=== PATIENT | female | born 1990 | race Hispanic/Latino ===

== ENCOUNTER 2023-10-21 23:06 | Emergency (ER) | payer BC, OTHER ==
--- OUTSIDE RECORDS SUMMARY | 2023-10-21 23:10 | XMS REPORT | Continuity of Care Document ---
Author Name Unknown Address [address] [facility]. [address] th[address] Address 1200 [facility] 1 [address] [place] [address] Care Team Providers Care Composition Worker Name Role Phone ABENA FIELDS Primary Care Physician YAN Mcconnell Attending Clinician ROMULO Fuentes Attending Clinician ISADORA Aranda Attending Clinician Unavailable ABENA FIELDS Attending Clinician Unavaila ble ABENA FIELDS Attending Clinician Unavaila ble [facility] Attending Clinician Unavailab le ABENA FIELDS Admitting Clinician Unavaila kalina Payers Payer Name Policy Type Policy Number Effective Date Expirati on Date Source [facility] [id number] 1 00:00:00 [facility] MEDICAID [id number] 2018 00:00:00 Allergies, Adverse Reactions, Alerts Allergy Name Allergy Type Status Severity Reaction(s) Onset Date Inactive Date Treating Clinician Comments Source [facility] Drug Class Active Hives 09-28 00:00: 00 [facility] Encounters Start Date/Time End Date/Time Encounter Type Admission Type Attending Clinicians Care Facility Care Department Encounter ID Source 2019-12-28 13:00:00 2019-12-28 13:00:00 Outpatient ROMULO BURGESS [facility] [id number] [facility] 2019-12-28 11:15:00 2019-12-28 11:15:00 Outpatient ISADORA JOHNSON [facility] [id number] [facility] 2019-09-21 15:15:00 2019-09-21 15:15:00 Outpatient ABENA HERRERA [facility] [id number] [facility] 2019-09-07 15:00:00 2019-09-07 15:00:00 Outpatient ABENA HERRERA [facility] [id number] [facility] 2019-06-13 11:56:18 2019-06-13 23:59:00 Outpatient ABENA HERRERA [facility] [id number] [facility] 2019-02-26 06:33:27 2019-02-26 08:31:00 Emergency X [facility] ERT [id number] [facility] Results Test Description Test Time Test Comments Results Result Co mments Source TSH, THIRD [id number] 06:48:12* Test Item Value Reference Range Interpretation Comme nts TSH, THIRD GENERATION (test code = 2821) 1.360 UIU/ML 0.400-4.100 [id number] 05:49:12* Test Item Value Reference Range Interpretation Comme nts RPR RESULT (test code = 3501) NON-REACTIVE NON-REACTIVE RPR TITER (test code = 3500) NOT INDIC. TITER NOT INDIC. UNLESS OTHERWISE INDICATED, ALL TESTING [facility] [address] [place] [address] MEDICAL AIDE: WESLEY GOODSON M.D. CLIA NUMBER [id number] [facility] [place]. [id number] COMPREHENSIVE METABOLIC [id number] 05:11:12* Test Item Value Reference Range Interpretation Comme nts GLUCOSE (test code = 2217) 105 MG/DL 70-99 H BUN (test code = 2208) 12 MG/DL 6-20 CREATININE (test code = 2214) 0.81 MG/DL 0.60-1.30 eGFR (2020 CKD-EPI) (test code = 31926) 99 ML/MIN/1.73 >60 CALC BUN/CREAT (test code = 2235) 15 RATIO 6-28 SODIUM (test code = 2231) 141 MEQ/L 133-146 POTASSIUM (test code = 2228) 4.0 MEQ/L 3.5-5.4 CHLORIDE (test code = 2215) 103 MEQ/L 95-107 CARBON DIOXIDE (test code = 2206) 26 MEQ/L 19-31 CALCIUM (test code = 220) 9.7 MG/DL 8.5-10.5 PROTEIN, TOTAL (test code = 2229) 6.7 G/DL 6.1-8.3 ALBUMIN (test code = 2201) 4.3 G/DL 3.5-5.2 CALC GLOBULIN (test code = 2240) 2.4 G/DL 1.9-3.7 CALC A/G RATIO (test code = 2234) 1.8 RATIO 1.0-2.6 BILIRUBIN, TOTAL (test code = 220) <0.2 MG/DL See_Comment [Automated me ssage] The system which generated this result transmitted reference range: <=1.2. The reference range was not used to interpret this result as normal/abnormal. ALKALINE PHOSPHATASE (test code = 2203) 98 U/L 40-114 AST (test code = 2217) 17 U/L 9-40 ALT (test code = 221) 20 U/L 5-40 LIPID [id number] 05:11:12* Test Item Value Reference Range Interpretation Comme nts CHOLESTEROL (test code = 2210) 174 MG/DL <200 TRIGLYCERIDES (test code = 2232) 157 MG/DL <150 H HDL CHOLESTEROL (test code = 0) 41 MG/DL >39 CALC LDL CHOL (test code = 2236) 106 MG/DL <100 H NOTE: CALCULATED LDL IS BASED ON MICHELE-FAUSTIN METHOD WHICHINCLUDES ADJUSTABLE TRIGLYCERIDE:VLDL CHOLESTEROL RATIO.THIS FACTOR VARIES BY MEASURED TRIGLYCERIDE AND NON-HDLCHOLESTEROL CONCENTRATIONS WITH INCREASED CALCULATED LDL SEENIN HIGHER TRIGLYCERIDE OR LOWER NON-HDL SPECIMENS. FOR MOREINFORMATION, SEE CLIENT ANNOUNCEMENT AT [email or web address] RISK RATIO LDL/HDL (test code = 2238) 2.59 RATIO <3.22 HEPATITIS PANEL, [id number] 04:59:54* Test Item Value Reference Range Interpretation Comme nts HEPATITIS A IgM (test code = 05762) NON-REACTIVE NON-REACTIVE HEPATITIS B CORE IgM (test code = 4644) NON-REACTIVE NON-REACTIVE HEPATITIS B SURF AG (test code = 2739) NON-REACTIVE NON-REACTIVE HEPATITIS C ANTIBODY (test code = 4675) NON-REACTIVE NON-REACTIVE INTERPRETATION HEPATITIS A: (test code = 2552) (NOTE) Hepatitis A serology shows no evidence of acute hepatitis A. INTERPRETATION HEPATITIS B: (test code = 85104) (NOTE) Hepatitis B serology shows no evidence of acute hepatitis B andno indication of exposure to hepatitis B virus in the previous мария eight months. INTERPRETATION HEPATITIS C: (test code = 42024) (NOTE) Hepatitis C serology shows no evidence of exposure to hepatitisC virus at this time. It can take up to 12 months after exposure tothe hepatitis C virus for antibodies to become detectable in the blood in certain patients. HIV 1/2 4TH GEN, RFLX [id number] 04:59:54* Test Item Value Reference Range Interpretation Comme nts HIV 1/2 4TH GEN, RFLX CONF ( test code = 3514) NON-REACTIVE NON-REACTIVE HEMOGLOBIN [id number] 04:17:27* Test Item Value Reference Range Interpretation Comme nts HEMOGLOBIN A1c (test code = 95377) 5.9 % 4.2-5.6 H CBC W/AUTO DIFF WITH [id number] 02:16:51* Test Item Value Reference Range Interpretation Comme nts WBC (test code = 1001) 7.4 K/UL 3.5-11.0 RBC (test code = 1002) 5.19 M/UL 3.80-5.40 HEMOGLOBIN (test code = 1003) 11.0 G/DL 11.5-15.5 L HEMATOCRIT (test code = 1004) 37.2 % 34.0-45.0 MCV (test code = 1005) 71.7 fL 80.0-99.0 L MCH (test code = 1006) 21.2 PG 25.0-33.0 L MCHC (test code = 1007) 29.6 G/DL 31.0-36.0 L RDW (test code = 1038) 15.6 % 11.5-15.0 H NEUTROPHILS (test code = 1008) 72.3 % LYMPHOCYTES (test code = 1010) 19.8 % MONOCYTES (test code = 1011) 5.6 % EOSINOPHILS (test code = 1012) 1.5 % BASOPHILS (test code = 1013) 0.3 % IMMATURE GRANULOCYTES (test code = 1036) 0.5 % NUCLEATED RBCS (test code = 1065) 0.0 /100 WBC'S See_Comment [Automated messa ge] The system which generated this result transmitted reference range: 0.0. The reference range was not used to interpret this result as normal/abnormal. PLATELET COUNT (test code = 1015) 238 K/UL 130-400 ABSOLUTE NEUTROPHILS (test code = 1066) 5.32 K/UL 1.50-7.50 ABSOLUTE LYMPHOCYTES (test code = 1067) 1.46 K/UL 1.00-4.00 ABSOLUTE MONOCYTES (test code = 1068) 0.41 K/UL 0.20-1.00 ABSOLUTE EOSINOPHILS (test code = 1040) 0.11 K/UL 0.00-0.50 ABSOLUTE BASOPHILS (test code = 1069) 0.02 K/UL 0.00-0.20 ABS IMMATURE GRANULOCYTES (test code = 1020) 0.04 K/UL 0.00-0.10 ABS NUCLEATED RBCS (test code = 85787) 0.00 K/UL 0.00-0.11
--- NOTE | 2023-10-21 23:23 | EDPHYS ---
Physician Documentation [facility] Name: Daxa Warren Age: 33 yrs Sex: Female : 1990 Arrival Date: 10/21/2023 Time: 23:06 Bed Waiting Private MD: ED Physician Augusto Richard HPI: 10/20 23:21 This 33 yrs old Female presents to ER via Unassigned with complaints of Insect kb Bite, Pain. 23:22 Pt is a 33 year old female who presents for abscess of right lower quadrant that kb developed 3-4 days ago. Reports drainage and redness. Denies fever. PRODUCTION SAMPLER: 23:29 LMP N/A - control method, Not tl4 Historical: - Allergies: 23:25 PENICILLINS; tl4 - Home Meds: 23:25 None [Active]; tl4 - PMHx: 23:25 Asthma; PE; tl4 - PSHx: 23:25 section; tl4 - Immunization history:: Adult Immunizations unknown. - Infectious Disease History:: Denies. - Social history:: Smoking status: Patient denies any tobacco usage or history of. ROS: 23:20 Constitutional: As per HPI kb Exam: 23:20 Constitutional: This is a well developed, well nourished patient who is awake, alert, kb and in no acute distress. Head/Face: Normocephalic, atraumatic. ENT: Moist Mucous membranes Cardiovascular: Regular rate Respiratory: Respirations even and unlabored. No increased work of breathing. Talking in full sentences MS/ Extremity: Pulses equal, no cyanosis. Neurovascular intact. Full, normal range of motion. Neuro: Awake and alert, GCS 15, oriented to person, place, time, and situation. Moves all extremities. Normal gait. 23:20 Skin: abscess, that is small, of the right lower quadrant, with drainage, that is purulent, Vital Signs: 23:21 BP 136 / 70; Pulse 70; Resp 16; Temp 98.3(O); Pulse Ox 100% on R/A; Weight 97.25 kg; tl4 Height 5 ft. 2 in. ; Pain 2/10; 23:21 Body Mass Index 39.21 (97.25 kg, 157.48 cm) tl4 23:21 Pain Scale: Adult tl4 MDM: 23:16 Patient medically screened. kb 23:20 Data reviewed: vital signs, nurses notes. kb 23:21 Differential diagnosis: abscess, allergic reaction, cellulitis, insect bite. kb Counseling: I had a detailed discussion with the patient and/or guardian regarding the historical points, exam findings, and any diagnostic results supporting the discharge/admit diagnosis, the need for outpatient follow up, a family practitioner, to return to the emergency department if symptoms worsen or persist or if there are any questions or concerns that arise at home. 23:21 ED course: No induration or area of fluctuance appreciated. No drainable abscess. kb Patient educated on warm compresses and to take antibiotics as directed.. Administered Medications: 23:29 Drug: Trimethoprim-Sulfamethoxazole PO (160 mg-800 mg (DS) 1 tablet PO once Route: PO; tl4 23:29 Follow up: Response: No adverse reaction; Medication administered at discharge. tl4 Disposition Summary: 10/21/23 23:22 Discharge Ordered Notes: Location: Home kb Condition: Stable kb Diagnosis - Cutaneous abscess of abdominal wall kb Followup: kb - With: Emergency Department - When: As needed - Reason: Worsening of condition Followup: kb - With: Private Physician - When: 2 - 3 days - Reason: Recheck today's complaints, Continuance of care, Re-evaluation by your physician Discharge Instructions: - Discharge Summary Sheet kb - Skin Abscess, [id number] kb Forms: - Medication Reconciliation Form kb - Antibiotic Education kb - Prescription Opioid Use kb - Patient Portal Instructions kb - Leadership Thank You Letter kb Prescriptions: - Bactrim DS 800-160 mg Oral Tablet - take 1 tablet ORAL route every 12 hours for 10 days; 20 tablet; Refills: 0, kb Product Selection Permitted Addendum: 10/25/2023 21:58 Co-signature as Attending Physician, Augusto Richard MD I agree with the assessment and c blakely plan of care. Signatures: Kelli Smith, WEED THINNER-C WEED THINNER-Augusto Joseph MD MD cha Logdahl, Toni, RN RN tl4 Corrections: (The following items were deleted from the chart) 10/20 23:21 23:20 Skin: abscess, that is small, of the right lower quadrant, kb
[2023-10-21] MEDS ORDERED: SMZ./TMP. 800/160 MG TABLET ONE (23:24)
--- NOTE | 2023-10-21 23:29 | ER ---
Nurse's Notes [facility] Name: Daxa Warren Age: 33 yrs Sex: Female : 1990 Arrival Date: 10/21/2023 Time: 23:06 Bed Waiting Private MD: Diagnosis: Cutaneous abscess of abdominal wall Presentation: 10/20 23:21 Chief complaint: Patient states: Pt c/o red, raised bump with purulent drainage on left tl4 lower quadrant since Tuesday. No fever/chills. Coronavirus screen: At this time, the client does not indicate any symptoms associated with coronavirus-19. Ebola Screen: No symptoms or risks identified at this time. Initial Sepsis Screen: Does the patient meet any 2 criteria? No. Patient's initial sepsis screen is negative. Does the patient have a suspected source of infection? No. Patient's initial sepsis screen is negative. Risk Assessment: Do you want to hurt yourself or someone else? Patient reports no desire to harm self or others. Onset of symptoms was October 18, 2023. 23:21 Method Of Arrival: Ambulatory tl4 23:21 Acuity: SRINATH 4 tl4 Triage Assessment: 23:25 Bite description: bite sustained to abdomen by an unknown animal, animal information: tl4 vaccination(s) is not applicable. General: Appears in no apparent distress. Behavior is calm, cooperative. Pain: Complains of pain in abdomen. EENT: No signs and/or symptoms were reported regarding the EENT system. Neuro: Level of Consciousness is awake, alert, obeys commands, Oriented to person, place, time, situation, Moves all extremities. Full function Gait is steady, Speech is normal. Cardiovascular: Capillary refill < 3 seconds Patient's skin is warm and dry. Respiratory: Airway is patent Respiratory effort is even, unlabored, Respiratory pattern is regular, symmetrical. GI: No signs and/or symptoms were reported involving the gastrointestinal system. : No signs and/or symptoms were reported regarding the genitourinary system. Derm: Wound noted abdomen. Musculoskeletal: No signs and/or symptoms reported regarding the musculoskeletal system. DIRECTOR OF RESIDENTIAL SERVICES: 23:29 LMP N/A - control method, Not tl4 Historical: - Allergies: 23:25 PENICILLINS; tl4 - Home Meds: 23:25 None [Active]; tl4 - PMHx: 23:25 Asthma; PE; tl4 - PSHx: 23:25 section; tl4 - Immunization history:: Adult Immunizations unknown. - Infectious Disease History:: Denies. - Social history:: Smoking status: Patient denies any tobacco usage or history of. Screenin:27 [facility] ED Fall Risk Assessment (Adult) History of falling in the last 3 months, tl4 including since admission No falls in past 3 months (0 pts) Confusion or Disorientation No (0 pts) Intoxicated or Sedated No (0 pts) Impaired Gait No (0 pts) Mobility Assist Device Used No (0 pt) Altered Elimination No (0 pt) Score/Fall Risk Level 0 - 2 = Low Risk Oriented to surroundings, Maintained a safe environment, Educated pt \T\ family on fall prevention, incl call for assistance when getting out of bed, Assessed \T\ reinforced patient's understanding of fall precautions. Abuse screen: Denies threats or abuse. Denies injuries from another. Nutritional screening: No deficits noted. Tuberculosis screening: No symptoms or risk factors identified. Assessment: 23:27 Derm: Skin is intact, Skin is pink, warm \T\ dry. tl4 Vital Signs: 23:21 BP 136 / 70; Pulse 70; Resp 16; Temp 98.3(O); Pulse Ox 100% on R/A; Weight 97.25 kg; tl4 Height 5 ft. 2 in. ; Pain 2/10; 23:21 Body Mass Index 39.21 (97.25 kg, 157.48 cm) tl4 23:21 Pain Scale: Adult tl4 ED Course: 23:14 Patient arrived in ED. gm2 23:15 Kelli Smith FNP-C is PHCP. kb 23:15 Augusto Richard MD is Attending Physician. kb 23:25 Triage completed. tl4 23:27 Arm band placed on right wrist. tl4 23:28 Patient has correct armband on for positive identification. Provided Education on: ED tl4 process. 23:28 No provider procedures requiring assistance completed. Patient did not have IV access tl4 during this emergency room visit. Administered Medications: 23:29 Drug: Trimethoprim-Sulfamethoxazole PO (160 mg-800 mg (DS) 1 tablet PO once Route: PO; tl4 23:29 Follow up: Response: No adverse reaction; Medication administered at discharge. tl4 Medication: 23:27 VIS not applicable for this client. tl4 Outcome: 23:22 Discharge ordered by MD. fabian 23:28 Discharged to home ambulatory, with family, tl4 23:28 Condition: stable 23:28 Discharge instructions given to patient, Instructed on discharge instructions, follow up and referral plans. medication usage, Demonstrated understanding of instructions, follow-up care, medications, Prescriptions given X 1, 23:29 Patient left the ED. tl4 Signatures: Kelli Smith FNP-C FNP-Marjorie Aguilera 2 Yvan Phillip, RN RN tl4
[2023-10-22 00:16] VITALS: BP 136/70; TEMP 98.3; O2SAT 100
== END 2023-10-21 23:29 | disposition home or self-care (01) ==
LOC: ER 23:06
DX: L02.211 Cutaneous abscess of abdominal wall (principal); Z88.0 Allergy status to penicillin

== ENCOUNTER 2025-03-26 09:54 | Emergency (ER) | payer BC ==
--- OUTSIDE RECORDS SUMMARY | 2025-03-26 09:57 | XMS REPORT | Continuity of Care Document ---
Author Name Unknown Address [address] [place] [address] [facility] Address [address] [place] [address] Care Team Providers Care Slitter Cut Off Operator Name Role Phone PCP, PATIENT DOES NOT HAVE A Primary Care Physic micaela Unavailable LUCY GREGORY Attending Clinician Unavailable SONDRA DAVIS Attending Clinician Unavailable Doctor Unassigned, [place] Attending Clinician U navailable Lab, Ang - Db Attending Clinician Unavailable Lucy Acuña Attending Clinician ADUMROMULO Attending Clinician Unavailable ISADORA ALVAREZ Attending Clinician Unavailable ABENA FIELDS Attending Clinician Unavaila ABENA Avendaño Attending Clinician Unavaila MAITE Youngblood Attending Clinician Unavailab ABENA Chadwick Admitting Clinician Unavaila ble Payers Payer Name Policy Type Policy Number Effective Date Expirati on Date Source [id number] 2024 00:00:00 [facility] MEDICAID [id number] 2018 00:00:00 Problems Condition Name Condition Details Condition Category Status Onset Date Resolution Date Last Treatment Date Treating Clinician Comments Source Anxiety Anxiety Disease Active 10-24 00:00: 00 [facility] Hypotensio n, unspecifie d hypotensio n type Hypotensio n, unspecifie d hypotensio n type Disease Active 10-24 00:00: 00 [facility] History of depression History of depression Disease Active 2018-06 00:00: 00 [facility] History of OCD (obsessive compulsive disorder) History of OCD (obsessive compulsive disorder) Disease Active 2018-06 00:00: 00 [facility] Candidal intertrigo Candidal intertrigo Disease Active 2018-06 00:00: 00 [facility] Puerperal endometrit is, condition or complicati on Puerperal endometrit is, condition or complicati on Disease Active 2018-06 00:00: 00 Overview: Formattin g of this note is different from the original. 06/12/19 - A pelvic US revealed an enlarged uterus measuring approxima tely 10.8 x 4.8 x 6.7 cm. Endometri al echo complex is7.2 mm. Small amount of fluid is detected within the endometri al cavity. Normal ovaries. ?CONCLUSI ON: Enlarged uterus with retained secretion s within theendome trial cavity. Etiology of retained secretion s could be endometri tis. [facility] Anemia of mother in , antepartum Anemia of mother in , antepartum Disease Active 02-16 00:00: 00 Overview: Formattin g of this note might be different from the original. 02/16/19 - Hgb 8.5, hct 30.1, MCV 66.7. Ferrous sulfate started - Hgb 9.5/hct 33.6 [facility] Prior poor obstetrica l history, antepartum Prior poor obstetrica l history, antepartum Disease Active 10-27 00:00: 00 Overview: Formattin g of this note might be different from the original. History of prior 4th degree laceratio n. Patient desires primary section. [facility] Personal history of pulmonary embolism Personal history of pulmonary embolism Disease Active 10-27 00:00: 00 Overview: Formattin g of this note might be different from the original. PE diagnosed 2 months postpartu 10/28/18 - Antiphosp holipid workup negative. Protein S low. B2 glycoprot ein and FVL negative. Started on Lovenox 40mg daily. Referral to [facility] (Dr. Tolbert) [facility] Not immune to rubella Not immune to rubella Disease Active 10-02 00:00: 00 Overview: Formattin g of this note might be different from the original. Equiv. Give postpartu m.ICD10 Diagnosis Term Flush Tester Utility [facility] Obesity Obesity Disease Active 09-28 00:00: 00 Overview: Formattin g of this note might be different from the original. ICD10 Diagnosis Term Flush Tester Utility [facility] Asthma Asthma Disease Active 09-28 00:00: 00 Overview: Formattin g of this note might be different from the original. ICD10 Diagnosis Term Flush Tester Utility [facility] Allergies, Adverse Reactions, Alerts Allergy Name Allergy Type Status Severity Reaction(s) Onset Date Inactive Date Treating Clinician Comments Source PENICILL INS Drug Class Active Hives 09-28 00:00: 00 [facility] Penicill ins Propensi ty to adverse reaction s Active Hives 09-28 00:00: 00 [facility] Social History Social Habit Start Date Stop Date Quantity Comments [facility] intake 2023-10-25 00:00:00 2023-10-25 00:00:00 Current non-drinker of alcohol (finding) [facility] Alcohol intake 2023-10-25 00:00:00 2023-10-25 00:00:00 Current non-drinker of alcohol (finding) [facility] History of Social function 2023-10-25 00:00:00 2023-10-25 00:00:00 [facility] Tobacco use and exposure 2017-06-13 00:00:00 2017-06-13 00:00:00 Smokeless tobacco non-user [facility] Alcohol Comment 2017-06-13 00:00:00 2017-06-13 00:00:00 wine [facility] History of tobacco use 2012-06-27 00:00:00 Cigarette Smoker [facility] Sex assigned at 1990 00:00:00 1990 00:00:00 [facility] Smoking Status Start Date Stop Date Source Never smoked tobacco [facility] Medications Ordered Medication Name Filled Medication Name Start Date Stop Date Current Medication? Ordering Clinician Indication Dosage Frequency Signature (SIG) Comments Components Source tirzepatide 2.5 mg/0.5 mL subcutaneou s injection 10-25 00:00: 00 Yes [id number] 2.5mg inject 2.5 mg under the skin weekly. [facility] dextroamphe tamine/amph etamine (ADDERALL ORAL) 10-24 09:01: 35 10-24 00:00 :00 No Take by mouth. [facility] buPROPion XL 150 mg 24 hr tablet 10-24 00:00: 00 Yes [id number] 150mg Take 1 tablet by mouth in the morning. [facility] clotrimazol e-betametha sone cream 10-24 00:00: 00 Yes [id number] Apply to area(s) 2 (two) times daily. [facility] sulfamethox azole-trime thoprim (BACTRIM DS) 800-160 mg per tablet 3-27 00:00: 00 10-24 00:00 :00 No [id number] 1{tbl} Take 1 tablet by mouth 2 (two) times daily. [facility] pantoprazol e (PROTONIX) 20 mg EC tablet 3-13 00:00: 00 10-24 00:00 :00 No [id number] 20mg Take 1 tablet by mouth 2 (two) times daily. [facility] buPROPion XL 150 mg 24 hr tablet 3-11 00:00: 00 10-24 00:00 :00 No [facility] clonazePAM 0.5 mg tablet 2-14 00:00: 00 10-24 00:00 :00 No .5mg Take 1 tablet by mouth at bedtime. [facility] Immunizations Ordered Immunization Name Filled Immunization Name Date Status Comments Source TD, NOS 2023-10-29 00:00:00 Completed [facility] Rubella 2023-10-29 00:00:00 Completed [facility] Varicella (varivax)(chicken pox) 2023-10-29 00:00:00 Completed [facility] TDAP (ADACEL) VACCINE 2023-10-29 00:00:00 Completed [facility] Influenza Virus Vaccine Quad .5 mL IM 6+ MO (FLUZONE/FLULAVAL/F LUARIX) 2023-10-29 00:00:00 Completed [facility] Pneumococcal 20 Conjugate, PCV20 (Prevnar 20) 2023-10-29 00:00:00 Completed [facility] TD, NOS 2023-10-25 09:45:00 Completed [facility] Rubella 2023-10-25 09:45:00 Completed [facility] Varicella (varivax)(chicken pox) 2023-10-25 09:45:00 Completed [facility] TDAP (ADACEL) VACCINE 2023-10-25 09:45:00 Completed [facility] Influenza Virus Vaccine Quad .5 mL IM 6+ MO (FLUZONE/FLULAVAL/F LUARIX) 2023-10-25 09:45:00 Completed [facility] Pneumococcal 20 Conjugate, PCV20 (Prevnar 20) 2023-10-25 09:45:00 Completed [facility] TD, NOS 2023-10-25 09:00:00 Completed [facility] Rubella 2023-10-25 09:00:00 Completed [facility] Varicella (varivax)(chicken pox) 2023-10-25 09:00:00 Completed [facility] TDAP (ADACEL) VACCINE 2023-10-25 09:00:00 Completed [facility] Influenza Virus Vaccine Quad .5 mL IM 6+ MO (FLUZONE/FLULAVAL/F LUARIX) 2023-10-25 09:00:00 Completed [facility] Pneumococcal 20 Conjugate, PCV20 (Prevnar 20) 2023-10-25 09:00:00 Completed [facility] Vital Signs Vital Name Observation Time Observation Value Comments S ource Systolic blood pressure 2023-10-25 14:01:00 110 mm[Hg] [place] [facility] Diastolic blood pressure 2023-10-25 14:01:00 47 mm[Hg] [facility] Heart rate 2023-10-25 14:01:00 75 /min [facility] Body height 2023-10-25 14:01:00 157.5 cm [facility] Body weight 2023-10-25 14:01:00 98.385 kg [facility] BMI 2023-10-25 14:01:00 39.67 kg/m2 [facility] Oxygen saturation in Arterial blood by Pulse oximetry 2023-10-25 14:01:00 100 /min [facility] Procedures Procedure Date / Time Performed Performing Clinician Source COMP. METABOLIC PANEL (93049) 2023-10-25 14:49:00 Lucy Gregory [facility] CBC WITH DIFF 2023-10-25 14:49:00 Lucy Gregory [facility] PNEUMOCOCCAL 20 CONJUGATE (PREVNAR 20) VACCINE 2023-10-25 14:13:32 Lucy Gregory [facility] Encounters Start Date/Time End Date/Time Encounter Type Admission Type Attending Clinicians Care Facility Care Department Encounter ID Source 2024-04-27 13:30:00 2024-04-27 13:30:00 Outpatient [facility] [id number] [facility] 2023-12-09 13:20:00 2023-12-09 13:20:00 Outpatient [facility] [id number] [facility] 2023-10-29 00:00:00 2023-12-03 18:03:10 Patient Secure Msg Doctor Unassigned, [place] [facility] 1.114 [id number] [id number] [facility] 2023-10-25 09:45:00 2023-10-25 10:00:00 Land Inspector Visit Lab, Lucy Gant [facility] 1..114 [id number] [id number] [id number] [facility] 2023-10-25 09:00:00 2023-10-25 09:34:28 Outpatient R [facility] [id number] [facility] 2023-10-25 09:00:00 2023-10-25 09:34:28 Office Visit Lucy Gregory [facility] [id number] [facility] 2019-12-28 13:00:00 2019-12-28 13:00:00 Outpatient R [facility] [id number] [facility] 2019-12-28 11:15:00 2019-12-28 11:15:00 Outpatient [facility] [id number] [facility] 2019-09-21 15:15:00 2019-09-21 15:15:00 Outpatient R ABENA FIELDS [facility] [id number] [facility] 2019-09-07 15:00:00 2019-09-07 15:00:00 Outpatient R [facility]ELDS [facility] [id number] [facility] 2019-06-13 11:56:18 2019-06-13 23:59:00 Outpatient R ABENA [facility]ELDS [facility] [id number] [facility] 2019-02-26 06:33:27 2019-02-26 08:31:00 Emergency X [facility] ERT [id number] [facility] Results Test Description Test Time Test Comments Results Result Co mments Source [facility] [id number] 19:21:31* Test Item Value Reference Range Interpretation Comme nts WBC (test code = 6690-2) 5.40 4.30-11.10 RBC (test code = 789-8) 4.92 3.93-5.25 HGB (test code = 718-7) 10.2 g/dL 11.6-15.0 L HCT (test code = 4544-3) 35.8 % 35.7-45.2 MCV (test code = 787-2) 72.8 fL 80.6-95.5 L MCH (test code = 785-6) 20.7 pg 25.9-32.8 L MCHC (test code = 786-4) 28.5 g/dL 31.6-35.1 L RDW-SD (test code = 70741-0) 41.6 fL 39.0-49.9 RDW-CV (test code = 788-0) 16.2 % 12.0-15.5 H PLT (test code = 777-3) 245 166-358 MPV (test code = 32158-8) 13.2 fL 9.5-12.9 H IPF % (test code = 1185290605) 8.4 % 1.3-7.7 H Platelet count measured by fluorescence method. NRBC/100 WBC (test code = 6965008196) 0.0 0.0-10.0 NRBC x10^3 (test code = 8141711890) See_Comment [Automated Pansievea ge] The system which generated this result transmitted reference range: 10*3/?L. The reference range was not used to interpret this result as normal/abnormal. GRAN MAT (NEUT) % (test code = 770-8) 67.5 % IMM GRAN % (test code = 7655588655) 0.70 % LYMPH % (test code = 736-9) 22.6 % MONO % (test code = 5905-5) 5.7 % EOS % (test code = 713-8) 3.1 % BASO % (test code = 706-2) 0.4 % GRAN MAT x10^3(ANC) (test code = 7164442763) 3.64 10*3/uL 1.88-7.09 IMM GRAN x10^3 (test code = 3042191994) 0.04 10*3/uL 0.00-0.06 LYMPH x10^3 (test code = 731-0) 1.22 10*3/uL 1.32-3.29 L MONO x10^3 (test code = 742-7) 0.31 10*3/uL 0.33-0.92 L EOS x10^3 (test code = 711-2) 0.17 10*3/uL 0.03-0.39 BASO x10^3 (test code = 704-7) 0.01-0.07 Lab Interpretation (test code = 45230-4) Abnormal [facility], NAAT, [id number] 08:45:30* Test Item Value Reference Range Interpretation Comme nts GONORRHEA, NAAT (test code = 42813) NEGATIVE NEGATIVE IMPORTANT NO KEVIN: SEE ANNOUNCEMENT AT [email or web address] Note: Assay methodology is nucleic acid amplification by grain drier mediated amplification (TMA) utilizing the Aptima Combo 2 Assay. CHLAMYDIA, NAAT (test code = 94696) NEGATIVE NEGATIVE IMPORTANT NO KEVIN: SEE ANNOUNCEMENT AT [email or web address] BiosciencesKit Note: Assay methodology is nucleic acid amplification by grain drier mediated amplification (TMA) utilizing the Aptima Combo 2 Assay. TSH, THIRD [id number] 06:48:12* Test Item Value Reference Range Interpretation Comme nts TSH, THIRD GENERATION (test code = 2821) 1.360 UIU/ML 0.400-4.100 [id number] 05:49:12* Test Item Value Reference Range Interpretation Comme nts RPR RESULT (test code = 3501) NON-REACTIVE NON-REACTIVE RPR TITER (test code = 3500) NOT INDIC. TITER NOT INDIC. UNLESS OTHERWISE INDICATED, ALL TESTING PERFORMED [facility], [facility] [address] [place] [id number] OSTEOPATHIC MEDICINE TEACHER: WESLEY GOODSON M.D. CLIA NUMBER [id number] [place]. [id number] COMPREHENSIVE METABOLIC [id number] 05:11:12* Test Item Value Reference Range Interpretation Comme nts GLUCOSE (test code = 2217) 105 MG/DL 70-99 H BUN (test code = 2208) 12 MG/DL 6-20 CREATININE (test code = 2214) 0.81 MG/DL 0.60-1.30 eGFR (2020 CKD-EPI) (test code = ) 99 ML/MIN/1.73 >60 CALC BUN/CREAT (test code = 2234) 15 RATIO 6-28 SODIUM (test code = 2230) 141 MEQ/L 133-146 POTASSIUM (test code = 2227) 4.0 MEQ/L 3.5-5.4 CHLORIDE (test code = 2214) 103 MEQ/L 95-107 CARBON DIOXIDE (test code = 2205) 26 MEQ/L 19-31 CALCIUM (test code = 2208) 9.7 MG/DL 8.5-10.5 PROTEIN, TOTAL (test code = 2228) 6.7 G/DL 6.1-8.3 ALBUMIN (test code = 2200) 4.3 G/DL 3.5-5.2 CALC GLOBULIN (test code = 2239) 2.4 G/DL 1.9-3.7 CALC A/G RATIO (test code = 2233) 1.8 RATIO 1.0-2.6 BILIRUBIN, TOTAL (test code = 2206) <0.2 MG/DL See_Comment [Automated me ssage] The system which generated this result transmitted reference range: <=1.2. The reference range was not used to interpret this result as normal/abnormal. ALKALINE PHOSPHATASE (test code = 2203) 98 U/L 40-114 AST (test code = 2217) 17 U/L 9-40 ALT (test code = 2218) 20 U/L 5-40 LIPID [id number] 05:11:12* Test Item Value Reference Range Interpretation Comme nts CHOLESTEROL (test code = 2209) 174 MG/DL <200 TRIGLYCERIDES (test code = 223) 157 MG/DL <150 H HDL CHOLESTEROL (test code = 2219) 41 MG/DL >39 CALC LDL CHOL (test code = 7) 106 MG/DL <100 H NOTE: CALCULATED LDL IS BASED ON MICHELE-FAUSTIN METHOD WHICHINCLUDES ADJUSTABLE TRIGLYCERIDE:VLDL CHOLESTEROL RATIO.THIS FACTOR VARIES BY MEASURED TRIGLYCERIDE AND NON-HDLCHOLESTEROL CONCENTRATIONS WITH INCREASED CALCULATED LDL SEENIN HIGHER TRIGLYCERIDE OR LOWER NON-HDL SPECIMENS. FOR MOREINFORMATION, SEE CLIENT ANNOUNCEMENT AT [email or web address] [email or web address] RATIO LDL/HDL (test code = 2238) 2.59 RATIO <3.22 HEPATITIS PANEL, [id number] 04:59:54* Test Item Value Reference Range Interpretation Comme [facility] HEPATITIS A IgM (test code = 52402) NON-REACTIVE NON-REACTIVE HEPATITIS B CORE IgM (test code = 4644) NON-REACTIVE NON-REACTIVE HEPATITIS B SURF AG (test code = 2739) NON-REACTIVE NON-REACTIVE HEPATITIS C ANTIBODY (test code = 4675) NON-REACTIVE NON-REACTIVE INTERPRETATION HEPATITIS A: (test code = 2552) (NOTE) Hepatitis A serology shows no evidence of acute hepatitis A. INTERPRETATION HEPATITIS B: (test code = 54019) (NOTE) Hepatitis B serology shows no evidence of acute hepatitis B andno indication of exposure to hepatitis B virus in the previous мария eight months. INTERPRETATION HEPATITIS C: (test code = 11983) (NOTE) Hepatitis C serology shows no evidence of exposure to hepatitisC virus at this time. It can take up to 12 months after exposure tothe hepatitis C virus for antibodies to become detectable in the blood in certain patients. HIV 1/2 4TH GEN, RFLX [id number] 04:59:54* Test Item Value Reference Range Interpretation Comme [facility] HIV 1/2 4TH GEN, RFLX CONF ( test code = 3514) NON-REACTIVE NON-REACTIVE HEMOGLOBIN [id number] 04:17:27* Test Item Value Reference Range Interpretation Comme [facility] HEMOGLOBIN A1c (test code = 60669) 5.9 % 4.2-5.6 H CBC W/AUTO DIFF WITH [id number] 02:16:51* Test Item Value Reference Range Interpretation Comme [facility] WBC (test code = 1001) 7.4 K/UL [...] 0.00-0.10 ABS NUCLEATED RBCS (test code = 46697) 0.00 K/UL 0.00-0.11 Notes Date/Time Note Provider Source 2023-10-25 09:45:00 Images from the original note were not included. Venipuncture collection performed by clean technique on the right forearm(s). Total of 1 attempts were made. Slight pressure and a bandage/dressing were applied to the site(s). The patient experienced no complications. The following specimens were processed according to instructions and sent to [facility] laboratories per lab order on 10/25/2023 : LT BLUE SST 2 RED LAV 2 PPT DK GREEN (LiHep) DK GREEN (SodH) VELIZ DK BLUE (K2) DK BLUE (S) ACD Blood Culture NIPT/NTD [facility] 2023-10-25 09:00:00 Addended by: SIL GREGORY DNP-LUCY SNOWDEN on: 10/26/2023 07:10 AM Modules accepted: Orders [facility]
[2025-03-26] MEDS ORDERED: ONDANSETRON 4 MG/2 ML VIAL ONE (10:14)
[2025-03-26] MEDS ORDERED: NA CHLORIDE 0.9% 1,000 ML ONE (10:15)
[2025-03-26] MEDS ORDERED: FAMOTIDINE 20 MG/2 ML VIAL IV ONE (10:15)
[2025-03-26 10:19] LABS: Absolute Lymphocytes (CBC) 1.2 K/uL (0.7-4.9); Hematocrit 37.2 % (36.0-45.0); Hemoglobin 11.3 g/dL (12.0-15.0); MCH 18.9 pg (27.0-35.0); MCHC 30.4 g/dL (32.0-36.0); MCV 62.2 fL (80-100); MPV 9.4 fL (7.6-11.3); Nucleated RBC Absolute Count 0.0 (0-0); Nucleated Red Blood Cells % 0.0 % (0-0); RBC Red Blood Cell Count 5.98 M/uL (3.86-4.86); White Blood Count 9.50 thou/uL (4.3-10.9)
[2025-03-26 10:39] LABS: ALT/SGPT 26 U/L (13-56); AST/SGOT < 10 U/L (15-37); Albumin 3.8 g/dL (3.4-5.0); Albumin/Globulin Ratio 1.1 (1.1-1.8); Alkaline Phosphatase 88 U/L (45-117); Anion Gap 9.6 mEq/L (5.0-15.0); BUN Blood Urea Nitrogen 9 mg/dL (7-18); Globulin 3.6 g/dL (2.3-3.5); Glucose Level 87 mg/dL (74-106); Lipase 15 U/L (13-75); Potassium 3.6 mEq/L (3.5-5.1)
[2025-03-26 11:11] LABS: Sqamous Epithelial <5 /HPF (None Seen); Urine Culture Reflex Order NOT NEEDED; Urine Microscopic Reflex YN ORDER UMIC; Urine WBC Clump Rare /HPF (None Seen); Urine Yeast (Budding) Trace /HPF (None Seen)
[2025-03-26 11:15] LABS: Anisocytosis 1+; Blood Morphology Comment NOTED (NOT SEEN); Microcytosis 2+; White Blood Cell Scan OK (OK)
[2025-03-26 11:16] LABS: Hypochromasia 1+; Ovalocytes 1+; Polychromasia SLIGHT
--- NOTE | 2025-03-26 12:06 | ER ---
Nurse's Notes [facility] Name: Daxa Mejia Age: 34 yrs Sex: Female : 1990 Arrival Date: 03/26/2025 Time: 09:54 Bed 14 Private MD: Diagnosis: Nausea with vomiting, unspecified;Adverse effect of other drugs, medicaments and biological substances-GLP1 Presentation: 03/26 10:15 Chief complaint: Patient states: started on 2.4mg Mounjaro, switched to wegovy af3 injection yesterday, today c/o N/V and headache. 10:15 Method Of Arrival: Ambulatory af3 10:15 Coronavirus screen: At this time, the client does not indicate any symptoms associated af3 with coronavirus-19. Ebola Screen: No symptoms or risks identified at this time. Initial Sepsis Screen: Does the patient meet any 2 criteria? No. Patient's initial sepsis screen is negative. Does the patient have a suspected source of infection? No. Patient's initial sepsis screen is negative. Risk Assessment: Do you want to hurt yourself or someone else? Patient reports no desire to harm self or others. Onset of symptoms was March 26, 2025. 10:15 Acuity: SRINATH 3 af3 Triage Assessment: 10:34 Headache History: Denies prior headaches. General: Appears in no apparent distress. af3 uncomfortable, well groomed, well developed, Behavior is calm, cooperative, appropriate for age. Pain: Complains of pain in forehead Pain currently is 5 out of 10 on a pain scale. Pain began 2 hours ago. Also complains of nausea. Neuro: Level of Consciousness is awake, alert, obeys commands, Oriented to person, place, time, situation, Appropriate for age. Cardiovascular: Patient's skin is warm and dry. Respiratory: Airway is patent Respiratory effort is even, unlabored, Respiratory pattern is regular, symmetrical. GI: Reports nausea, vomiting. 12:00 General: Appears in no apparent distress. comfortable, Behavior is calm, cooperative, rg5 appropriate for age. Neuro: Level of Consciousness is awake, alert, obeys commands, Oriented to person, place, time, situation. Cardiovascular: Patient's skin is warm and dry. Respiratory: Airway is patent Respiratory pattern is regular, symmetrical. GI: Reports nausea, vomiting. : No signs and/or symptoms were reported regarding the genitourinary system. Derm: Skin is intact, Skin is dry, Skin is normal. Musculoskeletal: Circulation, motion, and sensation intact. Range of motion: intact in all extremities. Historical: - Allergies: 10:34 PENICILLINS; af3 - PMHx: 10:34 Asthma; PE; af3 - PSHx: 10:34 section; af3 - Immunization history:: Adult Immunizations unknown. - Infectious Disease History:: Denies. - Social history:: Smoking status: Patient denies any tobacco usage or history of. Screenin:36 [facility] ED Fall Risk Assessment (Adult) History of falling in the last 3 months, af3 including since admission No falls in past 3 months (0 pts) Confusion or Disorientation No (0 pts) Intoxicated or Sedated No (0 pts) Impaired Gait No (0 pts) Mobility Assist Device Used No (0 pt) Altered Elimination No (0 pt) Score/Fall Risk Level 0 - 2 = Low Risk Oriented to surroundings, Maintained a safe environment. Abuse screen: Denies threats or abuse. Denies injuries from another. Nutritional screening: No deficits noted. Tuberculosis screening: No symptoms or risk factors identified. Assessment: 10:36 General: see triage assessment . af3 10:54 Reassessment: Patient appears in no apparent distress at this time. No changes from af3 previously documented assessment. Patient and/or family updated on plan of care and expected duration. Pain level reassessed. Patient states feeling better. Patient states symptoms have improved. 11:46 Reassessment: Patient appears in no apparent distress at this time. No changes from af3 previously documented assessment. Patient and/or family updated on plan of care and expected duration. Pain level reassessed. Patient states feeling better. Patient states symptoms have improved. 12:10 Pain: Denies pain. rg5 Vital Signs: 10:15 BP 106 / 56; Pulse 74; Resp 18; Pulse Ox 100% on R/A; af3 11:46 BP 144 / 67; Pulse 96; Resp 18; Pulse Ox 100% on R/A; af3 12:10 BP 118 / 67; Pulse 82; Resp 18; Pulse Ox 100% ; rg5 ED Course: 09:58 Patient arrived in ED. al6 09:59 Mirlande Phillips PA-C [facility]. sb4 09:59 Ricardo Gilliam DO is Attending Physician. sb4 10:11 Marci Adamson, RN is Primary Nurse. af3 10:15 No provider procedures requiring assistance completed. Inserted saline lock: 20 gauge af3 in right antecubital area, using aseptic technique. Blood collected. Flushed with 10 mL NS. 10:34 Triage completed. af3 10:34 Arm band placed on. af3 10:36 Patient has correct armband on for positive identification. Bed in low position. Call af3 light in reach. Provided Education on: meds, call light use . 11:45 PO fluids given. ap3 12:10 IV discontinued, bleeding controlled, No redness/swelling at site. Pressure dressing rg5 applied. Administered Medications: 10:23 Drug: Famotidine IVP 20 mg IVP once; dilute with 10 mL 0.9% NaCl; give over 2 minutes af3 Route: IVP; Site: right antecubital; 12:08 Follow up: Response: No adverse reaction rg5 10:23 Drug: NS 0.9% IV 1000 ml IV at 1 bolus Per protocol; to be given as a bolus over 60 af3 minutes Route: IV; Rate: 1 bolus; Site: right antecubital; 12:08 Follow up: IV Status: Completed infusion; IV Intake: 1000ml rg5 10:24 Drug: Ondansetron IVP 4 mg IVP once; over 2 minutes Route: IVP; Site: right antecubital;af3 12:08 Follow up: Response: No adverse reaction rg5 Medication: 10:36 VIS not applicable for this client. af3 Intake: 12:08 IV: 1000ml; Total: 1000ml. rg5 Outcome: 12:06 Discharge ordered by . sb4 12:11 Discharged to home ambulatory, rg5 12:11 Condition: stable 12:11 Discharge instructions given to patient, Instructed on discharge instructions, Demonstrated understanding of instructions, Prescriptions given X 1, 12:18 Patient left the ED. rg5 Signatures: Jodie Bond RN RN [email or web address] Mirlande Phillips, PAHugo PAHugo sb4 Fortino Blanton RN RN rg5 Marci Adamson RN RN af3 Naheed [email or web address]
--- NOTE | 2025-03-26 12:06 | EDPHYS ---
Physician Documentation [facility] Name: Daxa Mejia Age: 34 yrs Sex: Female : 1990 Arrival Date: 03/26/2025 Time: 09:54 Bed 14 Private MD: ED Physician Ricardo Gilliam HPI: 03/26 10:16 This 34 yrs old Female presents to ER via Unassigned with complaints of sb4 Headache, Nausea/Vomiting. 10:16 Patient states that she was taking Mounjaro 2.5 mg for 4 weeks for prediabetes and sb4 weight loss. She states that she was unable to get her insurance company to approve the next dose so she got Wegovy 2.4 mg from a friend. She states she took the injection yesterday and has been having nausea and vomiting ever since. States that she is unable to hold anything down. No abdominal pain. No fever or chills. Historical: - Allergies: 10:34 PENICILLINS; af3 - PMHx: 10:34 Asthma; PE; af3 - PSHx: 10:34 section; af3 - Immunization history:: Adult Immunizations unknown. - Infectious Disease History:: Denies. - Social history:: Smoking status: Patient denies any tobacco usage or history of. ROS: 10:16 Constitutional: Negative for fever, chills, and weight loss, sb4 10:16 Abdomen/GI: Positive for nausea and vomiting, 10:16 All other systems are negative, Exam: 10:16 Head/Face: Normocephalic, atraumatic. Eyes: Extra-ocular motions intact. Periorbital sb4 areas with no swelling, redness, or edema. ENT: Mucous membranes moist. Cardiovascular: Regular rate and rhythm with a normal S1 and S2. Respiratory: No increased work of breathing, no retractions or nasal flaring. Abdomen/GI: Soft, non-tender, no distension. Skin: Warm, dry with normal turgor. Normal color with no rashes, no lesions, and no evidence of cellulitis. 10:16 Constitutional: The patient appears alert, awake, uncomfortable, Vital Signs: 10:15 BP 106 / 56; Pulse 74; Resp 18; Pulse Ox 100% on R/A; af3 11:46 BP 144 / 67; Pulse 96; Resp 18; Pulse Ox 100% on R/A; af3 12:10 BP 118 / 67; Pulse 82; Resp 18; Pulse Ox 100% ; rg5 MDM: 09:59 Medical Screening Exam initiated sb4 10:18 Differential diagnosis: gastritis, pancreatitis, gastroparesis, adverse medication sb4 reaction. ED course: Discussed with patient that 2.4 mg of Wegovy is the maximum dose of semaglutide and is not equivalent to 2.5 mg of Mounjaro AKA tirzepatide. Educated on the importance of only taking medications prescribed by a licensed medical care provider. 12:06 Data reviewed: vital signs, nurses notes, lab test result(s), and as a result, I will sb4 discharge patient. Counseling: I had a detailed discussion with the patient and/or guardian regarding the historical points, exam findings, and any diagnostic results supporting the discharge/admit diagnosis, the presence of at least one elevated blood pressure reading (>120/80) during this emergency department visit, lab results, the need for outpatient follow up, for definitive care, to return to the emergency department if symptoms worsen or persist or if there are any questions or concerns that arise at home. 03/26 10:08 Order name: CBC with Diff; Complete Time: 11:16 sb4 03/26 10:08 Order name: CMP; Complete Time: 10:40 sb4 03/26 10:08 Order name: Lipase; Complete Time: 10:40 sb4 03/26 10:08 Order name: Test, Urine; Complete Time: 11:10 sb4 03/26 10:08 Order name: UA Rfx Justin Cult if indicated; Complete Time: 11:11 sb4 03/26 11:16 Order name: CBC Smear Scan; Complete Time: 11:16 EDMS 03/26 10:08 Order name: IV Saline Lock; Complete Time: 10:12 sb4 03/26 10:08 Order name: Labs collected and sent; Complete Time: 10:12 sb4 03/26 11:11 Order name: PO challenge; Complete Time: 11:33 sb4 Administered Medications: 10:23 Drug: Famotidine IVP 20 mg IVP once; dilute with 10 mL 0.9% NaCl; give over 2 minutes af3 Route: IVP; Site: right antecubital; 12:08 Follow up: Response: No adverse reaction rg5 10:23 Drug: NS 0.9% IV 1000 ml IV at 1 bolus Per protocol; to be given as a bolus over 60 af3 minutes Route: IV; Rate: 1 bolus; Site: right antecubital; 12:08 Follow up: IV Status: Completed infusion; IV Intake: 1000ml rg5 10:24 Drug: Ondansetron IVP 4 mg IVP once; over 2 minutes Route: IVP; Site: right antecubital;af3 12:08 Follow up: Response: No adverse reaction rg5 Disposition: 16:52 I was immediately available on-site in the Emergency Department for consultation in the ms3 care of the patient. Disposition Summary: 03/26/25 12:06 Discharge Ordered Notes: Location: Home sb4 Problem: new sb4 Symptoms: have improved sb4 Condition: Stable sb4 Diagnosis - Nausea with vomiting, unspecified sb4 - Adverse effect of other drugs, medicaments and biological substances - GLP1 sb4 Followup: sb4 - With: Emergency Department - When: As needed - Reason: Trouble breathing, Worsening of condition Discharge Instructions: - Discharge Summary Sheet sb4 - Nausea and Vomiting, Adult sb4 Forms: - Patient Portal Instructions sb4 - Leadership Thank You Letter sb4 Prescriptions: - ondansetron 8 mg Oral Tablet,disintegrating - take 1 tablet ORAL route every 8 hours; 20 tablet; Refills: 0, Product sb4 Selection Permitted Signatures: Dispatcher [employer] EDMS Ricardo Gilliam DO DO ms3 Mirlande Phillips PA-C PA-C sb4 Marci Adamson RN RN af3 Fortino Blanton RN rg5 Corrections: (The following items were deleted from the chart) 10:08 10:08 CBC+H.LAB.BRZ ordered. EDMS EDMS 10:08 10:08 COMPREHENSIVE METABOLIC PANEL+C.LAB.BRZ ordered. EDMS EDMS 10:08 10:08 LIPASE+C.LAB.BRZ ordered. EDMS EDMS 10:08 10:08 Test, Urine+UC.LAB.BRZ ordered. EDMS EDMS 10:08 10:08 UA Rfx Justin Cult if indicated+U.LAB.BRZ ordered. EDMS EDMS
[2025-03-26 12:28] VITALS: O2SAT 100
[2025-03-26 12:32] VITALS: BP 118/67
== END 2025-03-26 12:18 | disposition home or self-care (01) ==
LOC: ER 09:54
DX: R11.2 Nausea with vomiting, unspecified (principal); T50.995A Adverse effect of other drugs, medicaments and biological substances, initial encounter; J45.909 Unspecified asthma, uncomplicated; Z88.0 Allergy status to penicillin
CPT/HCPCS: 96361; 85025; 81001; 36415; 81025; 83690; 80053; 96375; 96374; 99284; J2405; J7030